=== PATIENT | male | born 1940 | race African-American/Black ===

== ENCOUNTER 2019-03-12 19:39 | Emergency (ER) | payer MEDICARE, MEDICAID ==
[~2019-03-12] VITALS: Ht 182.9 cm; Wt 77.0 kg
[2019-03-12 21:41] LABS: CHLORIDE 99 mEq/L (98-107)
[2019-03-12 21:44] LABS: HEMATOCRIT. 34.8 % (42.0-52.0); MEAN CORPUSCULAR HEMOGLOBIN 24.5 pg (28.0-32.0); MEAN CORPUSCULAR VOLUME 77.5 fL (80.0-94.0); MEAN PLATELET VOLUME 8.9 fl (7.4-10.4); PLATELET 169 x1000/uL (130-400); RED BLOOD CELL COUNT 4.49 mill/uL (4.7-6.1); RED CELL DISTRIBUTION WIDTH 20.6 % (11.6-14.6)
[2019-03-12 23:24] LABS: NUCLEATED RED BLOOD CELLS 2 /100 WBC; PLATELET ESTIMATE NORMAL
[2019-03-12] MEDS ORDERED: ASPIRIN 325MG TABLET PO ONE (23:45)
[2019-03-12] MEDS ORDERED: FUROSEMIDE 40MG/4ML VIAL IVP ONE (23:45)
[2019-03-13] MEDS ORDERED: INSULIN GLARGINE UD 100 UNITS/ML SYR SUBCUT ONE (09:30)
[2019-03-13 10:02] VITALS: BP 123/68
== END 2019-03-13 10:22 | disposition home or self-care (01) ==
LOC: ER 19:39 → CANBEDREQ 03-13 10:31
DX: I11.0 Hypertensive heart disease with heart failure (principal); I50.9 Heart failure, unspecified; N43.3 Hydrocele, unspecified; E46 Unspecified protein-calorie malnutrition; N50.89 Other specified disorders of the male genital organs; E11.9 Type 2 diabetes mellitus without complications
CPT/HCPCS: 36415; 71045; 76705; 76870; 80053; 82962; 83880; 84484; 85025; 93005; 93976; 96372; 96374; 99284; J1815; J1940